=== PATIENT | male | born 1985 | race African-American/Black ===

== ENCOUNTER 2019-12-06 10:51 | Emergency (ER) | payer OTHER ==
[~2019-12-06] VITALS: Ht 180.3 cm; Wt 65.8 kg
[~2019-12-06 10:51] MED LIST: EXCEDRIN CAPLE1 EACH PO; PERCOCET 5-3251 EACH PO; TAMSULOSIN HCL0.4 M1 PO
[2019-12-06 13:18] VITALS: BP 142/91
== END 2019-12-06 13:29 | disposition home or self-care (01) ==
LOC: ER 10:51
DX: S05.02XA Injury of conjunctiva and corneal abrasion without foreign body, left eye, initial encounter (principal); F17.210 Nicotine dependence, cigarettes, uncomplicated; X58.XXXA Exposure to other specified factors, initial encounter; Y93.89 Activity, other specified; Y92.89 Other specified places as the place of occurrence of the external cause; Y99.8 Other external cause status